=== PATIENT | female | born 2000 | race Caucasian/White ===

== ENCOUNTER → 2024-01-08 | Outpatient (CLI) | payer OTHER | END | disposition home or self-care (01) | LOC: LAB 14:30 → LAB SHORT 14:30 | DX: Z34.03 Encounter for supervision of normal first pregnancy, third trimester (principal) | CPT/HCPCS: 87081; 87150 ==

== ENCOUNTER 2024-01-19 21:10 | Inpatient (IN) | payer OTHER ==
[~2024-01-19] VITALS: Ht 157.5 cm; Wt 60.6 kg
[2024-01-19 21:38] VITALS: BP 129/84
[2024-01-19] MEDS ORDERED: Acetaminophen 325 MG TABLET PO PRN (22:05)
[2024-01-19] MEDS ORDERED: Ondansetron HCl 2 MG / ML 2ML Vial IV PRN (22:05)
[2024-01-19] MEDS ORDERED: FentaNYL Citrate 50 MCG/ML 2 ML Injection IV PRN (22:05)
[2024-01-19] MEDS ORDERED: Calcium Carbonate 500 MG Tab Chew PO PRN (22:05)
[2024-01-19] MEDS ORDERED: Lidocaine HCl 1% 30 ML SDV XX SCH (22:10)
[2024-01-19] MEDS ORDERED: Bupivacaine 0.5% HCl 5 MG/ML 30MLVIAL XX SCH (22:10)
[2024-01-19] MEDS ORDERED: Methylergonovine Maleate 0.2MG / ML 1ML Amp IM SCH (22:10)
[2024-01-19] MEDS ORDERED: Oxytocin 10 Unit / ML Vial IM SCH (22:10)
[2024-01-19] MEDS ORDERED: Misoprostol 200 MCG Tab PR SCH (22:10)
[2024-01-19] MEDS ORDERED: LR Oxytocin 20 Units 1,000 ML IV SCH ×2 (22:10→22:15)
[2024-01-19] MEDS ORDERED: Lactated Ringer's 1,000 ML IV PRN (22:10)
[2024-01-19] MEDS ORDERED: Castor Oil 59.146 ML BTL TOP SCH (22:10)
[2024-01-19] MEDS ORDERED: Bupivacaine HCl 2.5 MG/ML 10ML P/F Injection XX SCH (22:10)
[2024-01-19] MEDS ORDERED: Lactated Ringer's 1,000 ML IV SCH (22:15)
[2024-01-19 22:38] LABS: BASOPHILS ABSOLUTE AUTO 0.04 K/mm3 (0.00-0.23); BASOPHILS PERCENT AUTO 0 % (0-2); EOSINOPHILS ABSOLUTE AUTO 0.12 K/mm3 (0.00-0.68); EOSINOPHILS PERCENT AUTO 1 % (0-6); Hemoglobin 12.2 g/dL (11.5-16.0); IMMATURE GRAN ABSOLUTE AUTO 0.08 K/mm3 (0.00-0.10); IMMATURE GRAN PERCENT AUTO 1 % (0-1); LYMPHOCYTES ABSOLUTE AUTO 2.74 K/mm3 (0.84-5.20); LYMPHOCYTES PERCENT AUTO 24 % (21-46); MONOCYTES ABSOLUTE AUTO 1.23 K/mm3 (0.16-1.47); MONOCYTES PERCENT AUTO 11 % (4-13); Mean Corpuscular HGB 31.7 pg (26.0-34.0); Mean Corpuscular HGB Conc 33.9 g/dL (31.5-36.5); Mean Corpuscular Volume 94 fL (80-100); Mean Platelet Volume 9.9 fL (9.1-12.4); NEUTROPHILS ABSOLUTE AUTO 7.32 K/mm3 (1.96-9.15); NEUTROPHILS PERCENT AUTO 64 % (41-73); Platelet Count 294 K/mm3 (150-400); RDW Coefficient Variation 13.1 % (11.7-14.2); RDW Standard Deviation 44.1 fL (35.1-46.3); Red Blood Cell Count 3.85 M/mm3 (3.80-5.20); White Blood Cell Count 11.53 K/mm3 (4.00-11.30)
[2024-01-20] VITALS (11 sets, daily range): BP systolic 99–134; BP diastolic 59–86
[2024-01-20] MEDS ORDERED: ePHEDrine Sulfate 50 MG/ML 1ML Injection XX PRN (00:35)
[2024-01-20] MEDS ORDERED: Lactated Ringer's 1,000 ML IV SCH ×3 (00:35→01:40)
[2024-01-20] MEDS ORDERED: FentaNYL 2mcg/ml-Bup 0.1% Epd 250 ML EPI PRN (00:35)
[2024-01-20] MEDS ORDERED: Docusate Sodium 100 MG Cap PO PRN (01:35)
[2024-01-20] MEDS ORDERED: Witch Hazel/Glycerin PADS TOP PRN (01:35)
[2024-01-20] MEDS ORDERED: Ibuprofen 400 MG Tab PO PRN (01:35)
[2024-01-20] MEDS ORDERED: Misoprostol 200 MCG Tab PR PRN (01:40)
[2024-01-20] MEDS ORDERED: Methylergonovine Maleate 0.2MG / ML 1ML Amp IM PRN (01:40)
[2024-01-20] MEDS ORDERED: Carboprost Tromethamine 250 MCG/ML 1ML Amp IM PRN (01:40)
[2024-01-20] MEDS ORDERED: Benzocaine Topical Anesthetic Spray 60GM TOP PRN (01:40)
[2024-01-20] MEDS ORDERED: Acetaminophen 500 MG Tab PO PRN (01:40)
[2024-01-20] MEDS ORDERED: LR Oxytocin 20 Units 1,000 ML IV SCH (01:40)
[2024-01-20] MEDS ORDERED: Lanolin Cream TOP PRN (01:45)
[2024-01-20] MEDS ORDERED: Ketorolac Tromethamine 30mg Vial IV PRN (02:00)
[2024-01-20] MEDS ORDERED: Ketorolac Tromethamine 30mg Vial IV ONE (02:00)
--- NOTE | 2024-01-20 07:29 | NUR ---
EDUCATION GIVEN TO MOTHER ON SAFE SLEEP PRACTISES WITH BABY AND THAT CO-SLEEPING CAN LEAD TO DROPPING BABY OR BABY BECOMING INJURED. MOTHER STATES UNDERSTANDING.
[2024-01-20] MEDS ORDERED: Prenatal Vit/FE Fumarate/FA 1 Tab PO SCH (09:00)
[2024-01-21 00:40] VITALS: BP 107/61
[2024-01-21 04:18] VITALS: BP 112/81
[2024-01-21 07:53] VITALS: BP 114/78
[2024-01-21 11:07] VITALS: BP 116/84
--- NOTE | 2024-01-21 13:24 | NUR ---
No acute changes this shift. ID bands matched w/nb and verification form. Pt denies additional teaching/instruction. Denies additional meds or needs from RN prior to discharge. Will discharge home following nb bath.
== END 2024-01-21 13:35 | disposition home or self-care (01) | DRG 806 ==
LOC: OBS 21:10 → BC 21:55
PROVIDERS: Family Medicine; ADMIT Obstetrics & Gynecology
PROC: 10E0XZZ Delivery of Products of Conception, External Approach (ICD-10-PCS; principal; 2024-01-20)
DX: O42.02 Full-term premature rupture of membranes, onset of labor within 24 hours of rupture (principal); O99.324 Drug use complicating childbirth; Z37.0 Single live birth; Z3A.37 37 weeks gestation of pregnancy; F12.90 Cannabis use, unspecified, uncomplicated; O71.82 Other specified trauma to perineum and vulva
CPT/HCPCS: 36415; 85025; 86850; 86900; 86901; A9270; J1885; J2405; J2590; J7120

== ENCOUNTER 2024-04-28 15:37 | Emergency (ER) | payer OTHER ==
[~2024-04-28] VITALS: Ht 157.5 cm; Wt 52.2 kg
[~2024-04-28 15:37] MED LIST: ALBU90OI INH; PRED20 PO
[2024-04-28 16:34] LABS: BASOPHILS ABSOLUTE AUTO 0.04 K/mm3 (0.00-0.23); BASOPHILS PERCENT AUTO 0 % (0-2); EOSINOPHILS ABSOLUTE AUTO 0.22 K/mm3 (0.00-0.68); EOSINOPHILS PERCENT AUTO 2 % (0-6); Hematocrit 42.3 % (33.0-51.0); Hemoglobin 14.4 g/dL (11.5-16.0); IMMATURE GRAN ABSOLUTE AUTO 0.03 K/mm3 (0.00-0.10); IMMATURE GRAN PERCENT AUTO 0 % (0-1); LYMPHOCYTES ABSOLUTE AUTO 1.43 K/mm3 (0.84-5.20); LYMPHOCYTES PERCENT AUTO 15 % (21-46); MONOCYTES ABSOLUTE AUTO 0.96 K/mm3 (0.16-1.47); MONOCYTES PERCENT AUTO 10 % (4-13); Mean Corpuscular HGB 30.5 pg (26.0-34.0); Mean Corpuscular Volume 90 fL (80-100); Mean Platelet Volume 9.6 fL (9.1-12.4); NEUTROPHILS ABSOLUTE AUTO 6.99 K/mm3 (1.96-9.15); NEUTROPHILS PERCENT AUTO 72 % (41-73); Platelet Count 248 K/mm3 (150-400); RDW Coefficient Variation 11.9 % (11.7-14.2); RDW Standard Deviation 38.9 fL (35.1-46.3); Red Blood Cell Count 4.72 M/mm3 (3.80-5.20); White Blood Cell Count 9.67 K/mm3 (4.00-11.30)
[2024-04-28 17:13] LABS: Alanine Aminotransfer (ALT/SGP 45 U/L (12-78); Albumin, Blood 4.2 g/dL (3.4-5.0); Albumin/Globulin Ratio 1.2 (0.8-1.8); Alk Phos 65 U/L (50-136); Anion Gap 13 mmol/L (3-11); Aspartate Aminotrans (AST/SGOT 23 U/L (12-37); Bilirubin, Total 0.7 mg/dL (0.1-1.0); Blood Urea Nitrogen 14 mg/dL (8-24); Bun/Creatinine Ratio 21.1 (12.0-20.0); CO2, Blood 21 mmol/L (21-32); Calcium, Blood 9.5 mg/dL (8.5-10.1); Chloride, Blood 107 mmol/L (98-108); Creatinine, Blood 0.66 mg/dL (0.40-1.00); Globulin, Blood 3.6 g/dL (2.2-4.0); Glomerular Filtration Rate 127 (60-); Glucose, Blood 89 mg/dL (70-99); Potassium, Blood 3.6 mmol/L (3.5-5.5); Sodium, Blood 137 mmol/L (136-145); Total Protein, Blood 7.8 g/dL (6.4-8.2)
[2024-04-28] MEDS ORDERED: Ondansetron HCl 2 MG / ML 2ML Vial IV ONE (21:00)
[2024-04-28] MEDS ORDERED: Lactated Ringer's 1,000 ML IV SCH (21:00)
[2024-04-28] MEDS ORDERED: Acetaminophen 500 MG Tab PO ONE (21:00)
[2024-04-28] MEDS ORDERED: Ketorolac Tromethamine 15mg Vial IV ONE (21:00)
[2024-04-28] MEDS ORDERED: Mag Hydrox/AL Hydrox/Simeth 30 ML UDC PO ONE (21:05)
[2024-04-28 21:38] LABS: Beta HCG, Quantitative, Serum <1 mIU/mL (0-3)
[2024-04-28 23:19] LABS: Source, Urine Clean Catch
[2024-04-28 23:25] LABS: Bilirubin, Urine Neg (Neg); Blood, Urine 5+ (Neg); Glucose Qualitative, Urine Neg (Neg); Ketones, Urine 2+ (Neg); Leukocyte Esterase, Urine 2+ (Neg); Nitrite, Urine Neg (Neg); Protein, Urine 1+ (Neg); Specific Gravity, Urine 1.015 (1.003-1.022); Urobilinogen, Urine NORM (Normal)
[2024-04-28 23:30] LABS: Appearance, Urine Hazy (Clear); Color, Urine Yellow (P-Yellow)
[2024-04-28 23:40] LABS: Amorphous Light (0-Heavy); Bacteria Few /hpf; Red Blood Cells, Urine 0-2 /hpf (0-2); Squamous Epithelial Cells Few /hpf (Few)
[2024-04-29] MEDS ORDERED: CEPH500 PO (00:36)
[2024-04-29] MEDS ORDERED: Cephalexin Monohydrate 500 MG Cap PO ONE (00:45)
== END 2024-04-29 01:05 | disposition home or self-care (01) ==
LOC: ER 15:37
PROVIDERS: Physician Assistant; Student in an Organized Health Care Education/Training Program
DX: N12 Tubulo-interstitial nephritis, not specified as acute or chronic (principal); J45.901 Unspecified asthma with (acute) exacerbation; Z87.891 Personal history of nicotine dependence
CPT/HCPCS: 74177; 80053; 81001; 83690; 84702; 85025; 96361; 96374-59; 96375; 99284-25; A9270; J1885; J2405; J7120; Q9967

== ENCOUNTER 2024-05-10 18:11 | Emergency (ER) | payer OTHER ==
[~2024-05-10] VITALS: Ht 157.5 cm; Wt 52.2 kg
[~2024-05-10 18:11] MED LIST changes: +CEPH500 PO
[2024-05-10 19:19] LABS: BASOPHILS ABSOLUTE AUTO 0.07 K/mm3 (0.00-0.23); BASOPHILS PERCENT AUTO 1 % (0-2); EOSINOPHILS PERCENT AUTO 12 % (0-6); Hematocrit 37.4 % (33.0-51.0); Hemoglobin 12.7 g/dL (11.5-16.0); IMMATURE GRAN ABSOLUTE AUTO 0.02 K/mm3 (0.00-0.10); IMMATURE GRAN PERCENT AUTO 0 % (0-1); LYMPHOCYTES ABSOLUTE AUTO 2.77 K/mm3 (0.84-5.20); LYMPHOCYTES PERCENT AUTO 43 % (21-46); MONOCYTES PERCENT AUTO 9 % (4-13); Mean Corpuscular HGB 30.8 pg (26.0-34.0); Mean Corpuscular Volume 91 fL (80-100); Mean Platelet Volume 9.3 fL (9.1-12.4); NEUTROPHILS ABSOLUTE AUTO 2.19 K/mm3 (1.96-9.15); NEUTROPHILS PERCENT AUTO 34 % (41-73); Platelet Count 227 K/mm3 (150-400); RDW Coefficient Variation 12.1 % (11.7-14.2); RDW Standard Deviation 40.5 fL (35.1-46.3); Red Blood Cell Count 4.13 M/mm3 (3.80-5.20); White Blood Cell Count 6.45 K/mm3 (4.00-11.30)
[2024-05-10 19:26] LABS: Source, Urine Clean Catch
[2024-05-10 19:31] LABS: Appearance, Urine Clear (Clear); Bilirubin, Urine Neg (Neg); Blood, Urine 4+ (Neg); Color, Urine Yellow (P-Yellow); Glucose Qualitative, Urine Neg (Neg); Ketones, Urine Neg (Neg); Leukocyte Esterase, Urine Neg (Neg); Nitrite, Urine Neg (Neg); Protein, Urine 1+ (Neg); Specific Gravity, Urine 1.015 (1.003-1.022); Urobilinogen, Urine 1+ (Normal); pH, Urine 6.5 (5.0-8.0)
[2024-05-10 19:41] LABS: Bacteria Rare /hpf; Squamous Epithelial Cells Mod /hpf (Few); White Blood Cells, Urine 0-2 /hpf (0-5)
[2024-05-10 19:42] LABS: Albumin, Blood 3.6 g/dL (3.4-5.0); Albumin/Globulin Ratio 1.2 (0.8-1.8); Bilirubin, Total 0.3 mg/dL (0.1-1.0); Bun/Creatinine Ratio 13.7 (12.0-20.0); Calcium, Blood 8.5 mg/dL (8.5-10.1); Creatinine, Blood 0.8 mg/dL (0.40-1.00); Globulin, Blood 3.1 g/dL (2.2-4.0); Potassium, Blood 3.3 mmol/L (3.5-5.5); Total Protein, Blood 6.7 g/dL (6.4-8.2)
[2024-05-10] MEDS ORDERED: Ondansetron HCl 2 MG / ML 2ML Vial IV ONE (20:45)
[2024-05-10] MEDS ORDERED: Morphine Sulfate 4 MG/1 ML Injection IV ONE (20:45)
[2024-05-10] MEDS ORDERED: NS 1,000 ML IV SCH (21:10)
[2024-05-10] MEDS ORDERED: Ketorolac Tromethamine 15mg Vial IV ONE (21:15)
[2024-05-11] MEDS ORDERED: Lactated Ringer's 1,000 ML IV ONE (01:05)
[2024-05-11 01:43] LABS: Hematocrit 34.1 % (33.0-51.0); Hemoglobin 11.2 g/dL (11.5-16.0)
== END 2024-05-11 02:14 | disposition home or self-care (01) ==
LOC: ER 18:11
PROVIDERS: Emergency Medicine; Student in an Organized Health Care Education/Training Program
DX: N83.202 Unspecified ovarian cyst, left side (principal); N83.201 Unspecified ovarian cyst, right side; J45.909 Unspecified asthma, uncomplicated
CPT/HCPCS: 74177; 76705; 76830; 76856; 80053; 81001; 83690; 84703; 85014; 85018; 85025; 96361; 96374-59; 96375; 99284-25; J1885; J2270; J2405; J7030; J7120; Q9967

== ENCOUNTER 2024-05-22 17:28 | Emergency (ER) | payer OTHER ==
[~2024-05-22] VITALS: Ht 162.6 cm; Wt 52.2 kg
[2024-05-22] MEDS ORDERED: Ketorolac Tromethamine 15mg Vial IV ONE (17:35)
[2024-05-22 18:02] LABS: BASOPHILS ABSOLUTE AUTO 0.03 K/mm3 (0.00-0.23); BASOPHILS PERCENT AUTO 1 % (0-2); EOSINOPHILS ABSOLUTE AUTO 0.12 K/mm3 (0.00-0.68); EOSINOPHILS PERCENT AUTO 3 % (0-6); Hematocrit 40.5 % (33.0-51.0); Hemoglobin 13.8 g/dL (11.5-16.0); IMMATURE GRAN ABSOLUTE AUTO 0.01 K/mm3 (0.00-0.10); IMMATURE GRAN PERCENT AUTO 0 % (0-1); LYMPHOCYTES ABSOLUTE AUTO 1.46 K/mm3 (0.84-5.20); LYMPHOCYTES PERCENT AUTO 38 % (21-46); MONOCYTES PERCENT AUTO 16 % (4-13); Mean Corpuscular HGB 30.9 pg (26.0-34.0); Mean Corpuscular HGB Conc 34.1 g/dL (31.5-36.5); Mean Corpuscular Volume 91 fL (80-100); Mean Platelet Volume 9.5 fL (9.1-12.4); NEUTROPHILS ABSOLUTE AUTO 1.62 K/mm3 (1.96-9.15); NEUTROPHILS PERCENT AUTO 42 % (41-73); Platelet Count 202 K/mm3 (150-400); RDW Coefficient Variation 12.5 % (11.7-14.2); RDW Standard Deviation 41.3 fL (35.1-46.3); Red Blood Cell Count 4.47 M/mm3 (3.80-5.20); White Blood Cell Count 3.84 K/mm3 (4.00-11.30)
[2024-05-22 18:25] LABS: C-REACTIVE PROTEIN, EXT RANGE 3.6 mg/dL (0.000-0.300); Magnesium, Blood 1.7 mg/dL (1.6-2.4)
[2024-05-22 18:27] LABS: Albumin/Globulin Ratio 1.2 (0.8-1.8); Bilirubin, Total 0.3 mg/dL (0.1-1.0); Bun/Creatinine Ratio 16.5 (12.0-20.0); Calcium, Blood 9.3 mg/dL (8.5-10.1); Creatinine, Blood 0.79 mg/dL (0.40-1.00); Globulin, Blood 3.2 g/dL (2.2-4.0); Total Protein, Blood 7.2 g/dL (6.4-8.2)
[2024-05-22] MEDS ORDERED: Albuterol 2.5 MG/3 ML VIAL INH ONE (21:40)
[2024-05-22] MEDS ORDERED: Potassium Chloride 20 MEQ TabCR PO ONE (22:25)
[2024-05-22] MEDS ORDERED: Magnesium Oxide 400 MG Tab PO ONE (22:25)
[2024-05-22] MEDS ORDERED: POTA10T PO (22:34)
[2024-05-22] MEDS ORDERED: ALBU90OI INH (22:34)
[2024-05-22] MEDS ORDERED: PRED20 PO (22:34)
[2024-05-22] MEDS ORDERED: PredniSONE 20 MG Tab PO ONE (22:35)
== END 2024-05-22 23:01 | disposition home or self-care (01) ==
LOC: ER 17:28
PROVIDERS: Physician Assistant
DX: J45.901 Unspecified asthma with (acute) exacerbation (principal); R07.89 Other chest pain; E87.6 Hypokalemia; Z79.52 Long term (current) use of systemic steroids
CPT/HCPCS: 71046; 80053; 83735; 84484; 84703; 85025; 85379; 86140; 93005; 93010; 94640; 94664; 99285-25; A9270; J7512

== ENCOUNTER 2024-09-17 18:19 | Emergency (ER) | payer OTHER ==
[~2024-09-17] VITALS: Ht 162.6 cm; Wt 56.7 kg
[~2024-09-17 18:19] MED LIST changes: +POTA10T PO
[2024-09-17 19:36] LABS: BASOPHILS ABSOLUTE AUTO 0.04 K/mm3 (0.00-0.23); BASOPHILS PERCENT AUTO 0 % (0-2); EOSINOPHILS ABSOLUTE AUTO 0.18 K/mm3 (0.00-0.68); EOSINOPHILS PERCENT AUTO 2 % (0-6); Hematocrit 38.7 % (33.0-51.0); Hemoglobin 13.1 g/dL (11.5-16.0); IMMATURE GRAN ABSOLUTE AUTO 0.04 K/mm3 (0.00-0.10); IMMATURE GRAN PERCENT AUTO 0 % (0-1); LYMPHOCYTES ABSOLUTE AUTO 2.07 K/mm3 (0.84-5.20); LYMPHOCYTES PERCENT AUTO 20 % (21-46); MONOCYTES ABSOLUTE AUTO 0.75 K/mm3 (0.16-1.47); MONOCYTES PERCENT AUTO 7 % (4-13); Mean Corpuscular HGB 30.9 pg (26.0-34.0); Mean Corpuscular HGB Conc 33.9 g/dL (31.5-36.5); Mean Corpuscular Volume 91 fL (80-100); Mean Platelet Volume 9.3 fL (9.1-12.4); NEUTROPHILS ABSOLUTE AUTO 7.29 K/mm3 (1.96-9.15); NEUTROPHILS PERCENT AUTO 70 % (41-73); Platelet Count 237 K/mm3 (150-400); RDW Coefficient Variation 12.9 % (11.7-14.2); RDW Standard Deviation 42.5 fL (35.1-46.3); Red Blood Cell Count 4.24 M/mm3 (3.80-5.20); White Blood Cell Count 10.37 K/mm3 (4.00-11.30)
[2024-09-17] MEDS ORDERED: Acetaminophen 500 MG Tab PO ONE (19:55)
[2024-09-17 20:06] LABS: Source, Urine Clean Catch
[2024-09-17 20:15] LABS: Albumin, Blood 3.9 g/dL (3.4-5.0); Albumin/Globulin Ratio 1.3 (0.8-1.8); Bilirubin, Total 0.6 mg/dL (0.1-1.0); Bun/Creatinine Ratio 11.6 (12.0-20.0); Calcium, Blood 8.9 mg/dL (8.5-10.1); Creatinine, Blood 0.6 mg/dL (0.40-1.00); Globulin, Blood 3.1 g/dL (2.2-4.0); Potassium, Blood 3.4 mmol/L (3.5-5.5)
[2024-09-17 20:15] LABS: Bilirubin, Urine Neg (Neg); Blood, Urine Neg (Neg); Glucose Qualitative, Urine Neg (Neg); Ketones, Urine 1+ (Neg); Leukocyte Esterase, Urine 1+ (Neg); Nitrite, Urine Neg (Neg); Protein, Urine Neg (Neg); Urobilinogen, Urine NORM (Normal)
[2024-09-17 20:25] LABS: Appearance, Urine Clear (Clear); Color, Urine Pale Yellow (P-Yellow)
[2024-09-17 20:27] LABS: Bacteria Mod /hpf; Red Blood Cells, Urine 0-2 /hpf (0-2); Squamous Epithelial Cells Few /hpf (Few)
== END 2024-09-17 21:17 | disposition home or self-care (01) ==
LOC: ER 18:19
PROVIDERS: Student in an Organized Health Care Education/Training Program
DX: O99.891 Other specified diseases and conditions complicating pregnancy (principal); R10.12 Left upper quadrant pain; R10.32 Left lower quadrant pain; J45.909 Unspecified asthma, uncomplicated; Z3A.09 9 weeks gestation of pregnancy
CPT/HCPCS: 76801; 76817; 80053; 81001; 81025; 83690; 85025; 87086; 99284-25; A9270

== ENCOUNTER 2024-10-04 15:09 | Emergency (ER) | payer OTHER ==
[~2024-10-04] VITALS: Ht 157.5 cm; Wt 54.4 kg
[2024-10-04 16:47] LABS: BASOPHILS ABSOLUTE AUTO 0.04 K/mm3 (0.00-0.23); BASOPHILS PERCENT AUTO 1 % (0-2); EOSINOPHILS ABSOLUTE AUTO 0.31 K/mm3 (0.00-0.68); EOSINOPHILS PERCENT AUTO 4 % (0-6); Hematocrit 37.2 % (33.0-51.0); Hemoglobin 12.4 g/dL (11.5-16.0); IMMATURE GRAN ABSOLUTE AUTO 0.04 K/mm3 (0.00-0.10); IMMATURE GRAN PERCENT AUTO 1 % (0-1); LYMPHOCYTES ABSOLUTE AUTO 1.57 K/mm3 (0.84-5.20); LYMPHOCYTES PERCENT AUTO 20 % (21-46); MONOCYTES ABSOLUTE AUTO 0.61 K/mm3 (0.16-1.47); MONOCYTES PERCENT AUTO 8 % (4-13); Mean Corpuscular HGB 30.7 pg (26.0-34.0); Mean Corpuscular HGB Conc 33.3 g/dL (31.5-36.5); Mean Corpuscular Volume 92 fL (80-100); Mean Platelet Volume 9.4 fL (9.1-12.4); NEUTROPHILS PERCENT AUTO 68 % (41-73); Platelet Count 252 K/mm3 (150-400); RDW Coefficient Variation 13.4 % (11.7-14.2); RDW Standard Deviation 44.9 fL (35.1-46.3); Red Blood Cell Count 4.04 M/mm3 (3.80-5.20); White Blood Cell Count 8.07 K/mm3 (4.00-11.30)
[2024-10-04 17:06] LABS: Albumin, Blood 3.7 g/dL (3.4-5.0); Bilirubin, Total 0.7 mg/dL (0.1-1.0); Bun/Creatinine Ratio 12.4 (12.0-20.0); Calcium, Blood 8.7 mg/dL (8.5-10.1); Creatinine, Blood 0.56 mg/dL (0.40-1.00); Globulin, Blood 3.7 g/dL (2.2-4.0); Potassium, Blood 3.2 mmol/L (3.5-5.5); Total Protein, Blood 7.4 g/dL (6.4-8.2)
[2024-10-04 18:22] LABS: Source, Urine Clean Catch
[2024-10-04 18:40] LABS: Appearance, Urine Hazy (Clear); Bilirubin, Urine Neg (Neg); Blood, Urine 5+ (Neg); Color, Urine Yellow (P-Yellow); Glucose Qualitative, Urine Neg (Neg); Ketones, Urine Neg (Neg); Leukocyte Esterase, Urine 1+ (Neg); Nitrite, Urine Neg (Neg); Protein, Urine 1+ (Neg); Urobilinogen, Urine NORM (Normal)
[2024-10-04 18:49] LABS: Bacteria Many /hpf; Squamous Epithelial Cells Many /hpf (Few)
[2024-10-04 19:23] LABS: Hematocrit 33.5 % (33.0-51.0); Hemoglobin 11.6 g/dL (11.5-16.0); Mean Corpuscular HGB 31.7 pg (26.0-34.0); Mean Corpuscular HGB Conc 34.6 g/dL (31.5-36.5); Mean Corpuscular Volume 92 fL (80-100); Mean Platelet Volume 9.8 fL (9.1-12.4); Platelet Count 260 K/mm3 (150-400); RDW Coefficient Variation 13.4 % (11.7-14.2); RDW Standard Deviation 45.1 fL (35.1-46.3); Red Blood Cell Count 3.66 M/mm3 (3.80-5.20); White Blood Cell Count 8.48 K/mm3 (4.00-11.30)
[2024-10-04] MEDS ORDERED: LORazepam 2 MG/ML 1ML Injection IV ONE (19:35)
[2024-10-04] MEDS ORDERED: FentaNYL Citrate 50 MCG/ML 2 ML Injection IV ONE (19:35)
[2024-10-04] MEDS ORDERED: Misoprostol 200 MCG Tab PO ONE (20:10)
[2024-10-04] MEDS ORDERED: RX Prepack 6 Tabs Oxycodone 5mg UD ONE (21:00)
== END 2024-10-04 21:22 | disposition home or self-care (01) ==
LOC: ER 15:09
PROVIDERS: Student in an Organized Health Care Education/Training Program
DX: O99.891 Other specified diseases and conditions complicating pregnancy (principal); Z3A.11 11 weeks gestation of pregnancy; Z79.51 Long term (current) use of inhaled steroids; J45.909 Unspecified asthma, uncomplicated; Z87.891 Personal history of nicotine dependence
CPT/HCPCS: 74177; 80053; 81001; 83690; 84702; 84703; 85025; 85027; 87086; 96374-59; 96375; 99284-25; A9270; J2060; J3010; Q9967

== ENCOUNTER 2024-10-16 22:39 | Emergency (ER) | payer OTHER ==
[~2024-10-16] VITALS: Ht 157.5 cm; Wt 56.7 kg
[2024-10-16] MEDS ORDERED: HYDROcodone 5-APAP 325 TAB PO ONE (22:55)
[2024-10-16] MEDS ORDERED: Amoxicillin 500 MG Cap PO ONE (22:55)
[2024-10-16] MEDS ORDERED: Amoxicillin500 M1 PO (23:12)
[2024-10-16] MEDS ORDERED: HYDR1TAB94 PO (23:12)
== END 2024-10-16 23:18 | disposition home or self-care (01) ==
LOC: ER 22:39
DX: K08.89 Other specified disorders of teeth and supporting structures (principal); J45.909 Unspecified asthma, uncomplicated; Z87.891 Personal history of nicotine dependence
CPT/HCPCS: 99282; A9270

== ENCOUNTER 2024-11-29 20:09 | Emergency (ER) | payer OTHER ==
[~2024-11-29] VITALS: Ht 157.5 cm; Wt 54.4 kg
[~2024-11-29 20:09] MED LIST changes: +Amoxicillin500 M1 PO; +HYDR1TAB94 PO
[2024-11-29] MEDS ORDERED: Ibuprofen 600 MG Tab PO ONE (20:55)
[2024-11-29] MEDS ORDERED: Acetaminophen 325 MG TABLET PO ONE (21:40)
[2024-11-29] MEDS ORDERED: IBUP600 PO (21:55)
== END 2024-11-29 22:18 | disposition home or self-care (01) ==
LOC: ER 20:09
DX: S63.502A Unspecified sprain of left wrist, initial encounter (principal); S49.92XA Unspecified injury of left shoulder and upper arm, initial encounter; J45.909 Unspecified asthma, uncomplicated; W05.1XXA Fall from non-moving nonmotorized scooter, initial encounter; Z87.891 Personal history of nicotine dependence
CPT/HCPCS: 29105; 73080; 73110; 99283-25; A9270

== ENCOUNTER 2024-12-01 21:04 | Emergency (ER) | payer OTHER ==
[~2024-12-01] VITALS: Ht 157.5 cm; Wt 54.4 kg
[~2024-12-01 21:04] MED LIST changes: +IBUP600 PO
[2024-12-01] MEDS ORDERED: HYDROcodone 5-APAP 325 TAB PO ONE (23:30)
[2024-12-02] MEDS ORDERED: NAPR500 PO (00:02)
[2024-12-02] MEDS ORDERED: HYDR1TAB94 PO (00:02)
== END 2024-12-02 00:15 | disposition home or self-care (01) ==
LOC: ER 21:04
DX: S50.02XA Contusion of left elbow, initial encounter (principal); T84.113A Breakdown (mechanical) of internal fixation device of bone of left forearm, initial encounter; J45.909 Unspecified asthma, uncomplicated; W05.1XXA Fall from non-moving nonmotorized scooter, initial encounter
CPT/HCPCS: 73080; 99283-25; A9270

== ENCOUNTER → 2024-12-29 | Outpatient (CLI) | payer OTHER ==
[~2024-12-29] MED LIST changes: +NAPR500 PO
== END ==
LOC: LAB SHORT 14:15 → LAB 14:15
DX: R31.9 Hematuria, unspecified (principal)
CPT/HCPCS: 87086